=== PATIENT | female | born 1980 | race African-American/Black ===

== ENCOUNTER 2018-12-13 07:50 | Outpatient (CLI) | payer MEDICAID ==
[2018-12-13 08:35] LABS: ADD UMIC YES; UR ASCORBIC ACID NEGATIVE (NEGATIVE); UR BILIRUBIN (Dip) NEGATIVE (NEGATIVE); UR BLOOD (Dip) NEGATIVE (NEGATIVE); UR CLARITY SLIGHTLY CLOUDY (CLEAR); UR COLOR YELLOW (YELLOW); UR GLUCOSE (Dip) NEGATIVE (NEGATIVE); UR KETONES (Dip) NEGATIVE (NEGATIVE); UR LEUKOCYTE ESTERASE (Dip) 2+ Leu/ul (NEGATIVE); UR NITRITE (Dip) NEGATIVE (NEGATIVE); UR RBC 0 /HPF (0-5); UR SPECIFIC GRAVITY (Dip) 1.015 (1.003-1.030); UR SQUAMOUS EPITHELIAL CELL MODERATE /HPF (FEW); UR TOTAL PROTEIN (Dip) NEGATIVE (NEGATIVE); UR UROBILINOGEN (Dip) NEGATIVE (NEGATIVE); UR WBC 5 /HPF (0-5)
[2018-12-13 08:53] LABS: RUPTURE FETAL MEMBRANES NEGATIVE (NEGATIVE)
== END 2018-12-13 13:12 | disposition home or self-care (01) ==
LOC: OBT 07:50 → L-D 07:50 → OBT 13:12
DX: O26.853 Spotting complicating pregnancy, third trimester (principal); O36.5930 Maternal care for other known or suspected poor fetal growth, third trimester, not applicable or unspecified; O23.43 Unspecified infection of urinary tract in pregnancy, third trimester; Z3A.29 29 weeks gestation of pregnancy
CPT/HCPCS: 76815; 76818; 81001; 84112; 87086

== ENCOUNTER 2018-12-15 10:22 | Outpatient (CLI) | payer MEDICAID | END 2018-12-15 11:50 | disposition home or self-care (01) | LOC: OBT 10:22 → L-D 10:23 → OBT 11:50 | DX: O36.8130 Decreased fetal movements, third trimester, not applicable or unspecified (principal); Z3A.29 29 weeks gestation of pregnancy | CPT/HCPCS: 76818 ==

== ENCOUNTER 2019-02-01 20:01 | Outpatient (CLI) | payer MEDICAID | END 2019-02-01 21:44 | disposition home or self-care (01) | LOC: OBT 20:01 → L-D 20:02 → OBT 21:44 | DX: O26.893 Other specified pregnancy related conditions, third trimester (principal); N93.0 Postcoital and contact bleeding; O09.523 Supervision of elderly multigravida, third trimester; Z3A.36 36 weeks gestation of pregnancy | CPT/HCPCS: 76818 ==

== ENCOUNTER 2019-03-04 05:40 | Inpatient (IN) | payer MEDICAID ==
[2019-03-04] MEDS: LACTATED RINGER'S 1,000 ML IV ×2 (06:20→22:22)
[2019-03-04] MEDS ORDERED: OXYTOCIN 30 UNITS/LR 500 ML IV ×2 (06:30)
[2019-03-04] MEDS ORDERED: IBUPROFEN 600 MG TAB PO (06:30)
[2019-03-04] MEDS ORDERED: CARBOPROST 250 MCG INJ IM (06:30)
[2019-03-04] MEDS ORDERED: MINERAL OIL LIGHT 10 ML VIAL TOP (06:30)
[2019-03-04] MEDS ORDERED: MISOPROSTOL 200 MCG TAB PR (06:30)
[2019-03-04] MEDS ORDERED: BUTORPHANOL 2 MG INJ IV (06:30)
[2019-03-04] MEDS ORDERED: LIDOCAINE 1% (MPF) 30 ML INJ INJ (06:30)
[2019-03-04] MEDS ORDERED: METHYLERGONOVINE 0.2 MG INJ IM (06:30)
[2019-03-04 06:43] LABS: ADD MAN DIFF? NO
[2019-03-04 06:47] LABS: WHITE BLOOD COUNT 4.5 10^3/ul (4.8-10.8)
[2019-03-04 06:47] LABS: BASOPHILS % 0.2 % (0.0-2.0); EOSINOPHILS # 0.1 10^3/ul (0.0-0.5); EOSINOPHILS % 1.6 % (0.0-7.0); HEMATOCRIT 33.3 % (37.0-47.0); HEMOGLOBIN 11.1 g/dl (12.0-16.0); LYMPHOCYTES # 2.7 10^3/ul (0.8-2.9); LYMPHOCYTES % 59.6 % (15.0-51.0); MEAN CORPUSCULAR HEMOGLOBIN 28.7 pg (29.0-33.0); MEAN CORPUSCULAR HGB CONC 33.3 g/dl (32.0-37.0); MEAN PLATELET VOLUME 11.4 fl (7.4-10.4); MONOCYTE # 0.4 10^3/ul (0.3-0.9); MONOCYTES % 8.4 % (0.0-11.0); NEUTROPHIL # 1.3 10^3/ul (1.6-7.5); NEUTROPHILS % 29.8 % (39.0-77.0); PLATELET COUNT 197 10^3/UL (140-415); RED BLOOD COUNT 3.87 10^6/ul (4.20-5.40); RED CELL DISTRIBUTION WIDTH 14.1 % (11.5-14.5)
[2019-03-04 07:08] LABS: INR 0.88; PT RATIO 0.9
[2019-03-04 07:09] LABS: PARTIAL THROMBOPLASTIN TIME 28.3 Sec (23.0-35.0)
[2019-03-04] MEDS: OXYTOCIN 30 UNITS/LR 500 ML IV (07:35)
[2019-03-04 15:11] LABS: RAPID PLASMA REAGIN NONREACTIVE (NR)
[2019-03-04] MEDS ORDERED: FENTAnyl 2MCG/ML-ROPIV 0.2% 100 ML (23:18)
[2019-03-04] MEDS ORDERED: FENTAnyl 50 MCG/ML VIAL (23:18)
[2019-03-04] MEDS ORDERED: NALOXONE (0.4 MG/ML) INJ IV (23:30)
[2019-03-05] MEDS: LACTATED RINGER'S 1,000 ML IV ×4 (02:50→22:29)
[2019-03-05] MEDS: FENTAnyl 2MCG/ML-ROPIV 0.2% 100 ML BAG EPI (07:07)
[2019-03-05] MEDS: OXYTOCIN 30 UNITS/LR 500 ML IV ×2 (10:19→15:00)
[2019-03-05] MEDS: LACTATED RINGER'S 1,000 ML IV* ×2 (14:56→22:56)
[2019-03-05] MEDS ORDERED: MISOPROSTOL 200 MCG TAB PR (15:00)
[2019-03-05] MEDS ORDERED: NA PHOSPHATE/BIPHOS 133 ML ENEMA PR (15:00)
[2019-03-05] MEDS ORDERED: ONDANSETRON 4 MG TAB PO (15:00)
[2019-03-05] MEDS ORDERED: OXYTOCIN 30 UNITS/LR 500 ML IV (15:00)
[2019-03-05] MEDS ORDERED: SENNA/DOCUSATE NA (8.6MG/50MG) TAB PO (15:00)
[2019-03-05] MEDS ORDERED: ONDANSETRON 4 MG INJ IV (15:00)
[2019-03-05] MEDS ORDERED: CARBOPROST 250 MCG INJ IM (15:00)
[2019-03-05] MEDS ORDERED: WITCH HAZEL/GLYCERIN PAD PR (15:00)
[2019-03-05] MEDS ORDERED: DIBUCAINE 1% 30 GM OINT TOP (15:00)
[2019-03-05] MEDS ORDERED: HYDROCODONE/APAP (5/325) TAB PO ×2 (15:00)
[2019-03-05] MEDS ORDERED: BENZOCAINE 20% 56 ML SPRAY TOP (15:00)
[2019-03-05] MEDS ORDERED: MAGNESIUM HYDROXIDE 30ML CUP PO (15:00)
[2019-03-05] MEDS ORDERED: DIPHENHYDRAMINE 25 MG CAP PO (15:00)
[2019-03-05] MEDS ORDERED: LANOLIN HPA 1 PKT TOP (15:00)
[2019-03-05] MEDS ORDERED: DIPHENHYDRAMINE 50 MG INJ IV (15:00)
[2019-03-05] MEDS: IBUPROFEN 600 MG TAB PO (17:54)
[2019-03-05] MEDS: SENNA/DOCUSATE NA (8.6MG/50MG) TAB PO (20:43)
[2019-03-06] MEDS: IBUPROFEN 600 MG TAB PO ×4 (00:09→17:49)
[2019-03-06] MEDS: LACTATED RINGER'S 1,000 ML IV ×3 (06:29→22:29)
[2019-03-06] MEDS: LACTATED RINGER'S 1,000 ML IV* (06:56)
[2019-03-06 07:25] LABS: ADD MAN DIFF? NO
[2019-03-06 07:30] LABS: BASOPHILS % 0.4 % (0.0-2.0); EOSINOPHILS # 0.1 10^3/ul (0.0-0.5); EOSINOPHILS % 0.7 % (0.0-7.0); HEMATOCRIT 29.3 % (37.0-47.0); HEMOGLOBIN 9.6 g/dl (12.0-16.0); LYMPHOCYTES # 3.2 10^3/ul (0.8-2.9); LYMPHOCYTES % 32.9 % (15.0-51.0); MEAN CORPUSCULAR HEMOGLOBIN 28.7 pg (29.0-33.0); MEAN CORPUSCULAR HGB CONC 32.8 g/dl (32.0-37.0); MEAN CORPUSCULAR VOLUME 87.5 fl (82.0-101.0); MEAN PLATELET VOLUME 10.7 fl (7.4-10.4); MONOCYTE # 0.8 10^3/ul (0.3-0.9); MONOCYTES % 8.3 % (0.0-11.0); NEUTROPHIL # 5.6 10^3/ul (1.6-7.5); NEUTROPHILS % 57.3 % (39.0-77.0); PLATELET COUNT 180 10^3/UL (140-415); RED BLOOD COUNT 3.35 10^6/ul (4.20-5.40); RED CELL DISTRIBUTION WIDTH 14.4 % (11.5-14.5)
[2019-03-06 07:30] LABS: WHITE BLOOD COUNT 9.7 10^3/ul (4.8-10.8)
[2019-03-06] MEDS: SENNA/DOCUSATE NA (8.6MG/50MG) TAB PO ×2 (09:40→22:02)
[2019-03-06 14:13] LABS: HEPATITIS B SURFACE ANTIGEN NEGATIVE (NEGATIVE)
[2019-03-07] MEDS: IBUPROFEN 600 MG TAB PO ×3 (00:50→13:26)
[2019-03-07] MEDS: MEASLES,MUMPS,RUBELLA VACCINE INJ SC* (09:00)
[2019-03-07] MEDS: DIPHTH/TET/ACEL PERTUSS (ADULT) 0.5 ML VIAL IM* (09:00)
[2019-03-07] MEDS: VARICELLA VACCINE LIVE/PF 1,350 UNIT/0.5 ML ML SC* (09:00)
[2019-03-07] MEDS: SENNA/DOCUSATE NA (8.6MG/50MG) TAB PO (09:11)
== END 2019-03-07 16:15 | disposition home or self-care (01) | DRG 807 ==
LOC: L-D 05:40 → PP1 03-05 16:30
PROVIDERS: Specialist
PROC: 3E033VJ Introduction of Other Hormone into Peripheral Vein, Percutaneous Approach (ICD-10-PCS; 2019-03-04)
PROC: 10E0XZZ Delivery of Products of Conception, External Approach (ICD-10-PCS; principal; 2019-03-05)
DX: O48.0 Post-term pregnancy (principal); Z37.0 Single live birth; O76 Abnormality in fetal heart rate and rhythm complicating labor and delivery; O69.81X0 Labor and delivery complicated by cord around neck, without compression, not applicable or unspecified; Z3A.40 40 weeks gestation of pregnancy
CPT/HCPCS: 62322; 76815; 85025; 85610; 85730; 86592; 86850; 86900; 86901; 87340; 90716